=== PATIENT | female | born 1945 | race Caucasian/White ===

== ENCOUNTER 2018-03-31 15:53 | Emergency (ER) | payer MEDICARE, BC ==
[2018-03-31 16:00] VITALS: RESP 18
--- NOTE | 2018-03-31 16:03 | ED ---
General Adult HPI - General Chief complaint: Recheck/Abnormal Lab/Rx Stated complaint: med withdrawal Time Seen by Provider: 03/31/18 16:02 Source: patient, family Mode of arrival: ambulatory Limitations: no limitations - History of Present Illness Initial comments: Clarice Lieberman is a 72yo female who presents to the ED today for evaluation of concern for opiate withdraw and depression. Patient reports that she has been using oxycodone for 14 years, since she sustained an ankle injury. Patient reports that over the past couple of years she has been taking 2-4 Oxycodone daily. She states that at this point she believes that she has just been self medicating because she is depressed. Patient states [place] She states that the only things in the counter pharmacy in a bar. She states she has very limited social interaction that she has been isolated from her extended family including her daughters and her close female friends. She states that she has felt very socially isolated. She has been asking her to move to this area so that she could have more social interaction however he has refused. The patient states that last week she made a final decision to move in with her daughter so that she could be closer to more family. She states that since moving down here she has not had any oxycodone since Thursday and is concerned that she may have withdrawal. She came to the ER because she does not have any primary care and wants resources. Patient states that she does not believe she is experiencing any symptoms of withdrawal yet. She is not experiencing agitation, abdominal pain, nausea, vomiting, diarrhea. Patient denies any suicidal or homicidal thoughts, she has no delusions or hallucinations. SHe has been tending to her ADLs and making efforts to improve her life. The patient has her daughter and best friend at bedside. Her best friend states that she follows closely with a primary care physician here in town and is going to try to get the patient an appointment shortly. - Related Data Home Medications Medication Instructions Recorded Confirmed Aspirin EC [Ecotrin Low Dose] 81 mg PO DAILY 03/31/18 03/31/18 Atorvastatin [Lipitor] 10 mg PO DAILY 03/31/18 03/31/18 Carvedilol [Coreg] 12.5 mg PO BID 03/31/18 03/31/18 Cholecalciferol [Vitamin D3] 1,000 unit PO DAILY 03/31/18 03/31/18 Cyanocobalamin (Vitamin B-12) 3,000 mcg PO DAILY 03/31/18 03/31/18 [Vitamin B-12] Estrogen,Con/M-Progest Acet 1 tab PO DAILY 03/31/18 03/31/18 [Prempro 0.3 mg-1.5 mg Tablet] Ferrous Sulfate [Feosol] 325 mg PO DAILY 03/31/18 03/31/18 Furosemide [Lasix] 40 mg PO DAILY 03/31/18 03/31/18 Levothyroxine Sodium [Synthroid] 125 mcg PO DAILY 03/31/18 03/31/18 Omeprazole 40 mg PO DAILY 03/31/18 03/31/18 PARoxetine HCL [Paxil] 20 mg PO DAILY 03/31/18 03/31/18 Phenyleph/Acetaminophn/Doxylam 1 cap PO Q6HR PRN 03/31/18 03/31/18 [Vicks Dayquil-Nyquil Sinex Cap] Potassium Chloride ER [K-Dur 20] 20 meq PO DAILY 03/31/18 03/31/18 Valsartan 160 mg PO DAILY 03/31/18 03/31/18 amLODIPine BESYLATE [Norvasc] 10 mg PO HS 03/31/18 03/31/18 Previous Rx's Medication Instructions Recorded Baclofen 10 mg PO TID #15 tab 03/31/18 Dicyclomine [Bentyl] 10 mg PO TID #30 capsule 03/31/18 Allergies Allergy/AdvReac Type Severity Reaction Status Date / Time No Known Allergies Allergy Verified 03/31/18 16:20 Review of Systems ROS Statement: Those systems with pertinent positive or pertinent negative responses have been documented in the HPI. ROS Other: All systems not noted in ROS Statement are negative. Constitutional: Denies: fever, chills Respiratory: Denies: cough Cardiovascular: Denies: chest pain, palpitations Endocrine: Denies: fatigue Gastrointestinal: Denies: abdominal pain, nausea, vomiting Genitourinary: Denies: dysuria Musculoskeletal: Reports: arthralgia (chronic pain due to previous injuries of right ankle and left shoulder). Denies: back pain Skin: Denies: rash Neurological: Denies: headache Psychiatric: Reports: depression Hematological/Lymphatic: Denies: easy bleeding, easy bruising Past Medical History Past Medical History: CVA/TIA, Hypertension History of Any Multi-Drug Resistant Organisms: None Reported Past Surgical History: Joint Replacement Additional Past Surgical History / Comment(s): ankle Past Psychological History: Depression Smoking Status: Current every day smoker Past Alcohol Use History: None Reported Past Drug Use History: None Reported General Exam Limitations: no limitations General appearance: alert, in no apparent distress Head exam: Present: atraumatic, normocephalic Eye exam: Present: normal appearance ENT exam: Present: normal exam Neck exam: Present: normal inspection Respiratory exam: Present: normal lung sounds bilaterally. Absent: respiratory distress Cardiovascular Exam: Present: normal rhythm, tachycardia GI/Abdominal exam: Present: soft. Absent: distended Rectal exam: Present: deferred Extremities exam: Present: normal inspection Back exam: Present: normal inspection Neurological exam: Present: alert, oriented X3 Psychiatric exam: Present: depressed. Absent: anxious, flat affect, manic, homicidal ideation, suicidal ideation Skin exam: Present: warm, dry Course Vital Signs 03/31/18 03/31/18 15:56 17:08 Temperature 97.3 F L 98.4 F Pulse Rate 104 H 75 Respiratory 18 18 Rate Blood Pressure 195/91 153/73 O2 Sat by Pulse 100 100 Oximetry Medical Decision Making - Medical Decision Making Patient was seen and evaluated, the history is obtained from the patient as well as her daughter and friend at bedside Patient with 14 years of regular oxycodone use, denies any use of any other narcotics or pain medications. She does admit to obtaining oxycodone from friends and family members. She denies any other drug use. Patient expresses concerns that she is depressed, states that she has moved to this area to be with her family and friends and have stronger social support. Came to the ER concerned with impending opiate withdrawal. Time of arrival the patient was tachycardic and hypertensive but had no other acute complaints. Clonidine patch was ordered. I will discharge patient home with Bentyl and baclofen for symptomatic treatment of withdrawal. I offered to have the psychiatric nurse meet with the patient to establish an outpatient therapy and support system. At this time the patient feels confident that she will be able to establish a primary care physician all of the outpatient care that she needs. She does not want to wait to talk with the psychiatric nurse. I advised patient this time she does not appear to be having a symptomatic withdraw however there is possibility that she will develop symptoms. Advised if she develops any symptoms she should call 911 or return to the emergency department for reevaluation. I had a long conversation with the patient and her family member regarding depression as well as opiate withdrawal. Patient and family at bedside agreeable to plan for discharge home with symptomatic therapy of opiate withdrawal and plan to return to the ER for reevaluation if needed. Disposition Clinical Impression: Narcotic dependence Disposition: HOME SELF-CARE Condition: Good Instructions: Opioid Withdrawal (ED) Prescriptions: Baclofen 10 mg PO TID #15 tab Dicyclomine [Bentyl] 10 mg PO TID #30 capsule Is patient prescribed a controlled substance at d/c from ED?: No Referrals: None,Stated [Primary Care Provider] - 1-2 days
[2018-03-31] MEDS ORDERED: cloNIDine 0.1 MG/24HR PATCH 1 PATCH PATCH TRANSDERM SCH (17:00)
[2018-03-31 17:09] VITALS: BP 153/73; PULSE 75; TEMP 98.4
== END 2018-03-31 17:36 | disposition home or self-care (01) ==
LOC: EC 15:53
DX: F11.20 Opioid dependence, uncomplicated (principal); I10 Essential (primary) hypertension; F32.9 Major depressive disorder, single episode, unspecified; F17.200 Nicotine dependence, unspecified, uncomplicated; Z86.73 Personal history of transient ischemic attack (TIA), and cerebral infarction without residual deficits; Z79.82 Long term (current) use of aspirin; Z79.02 Long term (current) use of antithrombotics/antiplatelets; Z79.899 Other long term (current) drug therapy
CPT/HCPCS: 99283

== ENCOUNTER 2022-08-09 07:57 | Emergency (ER) | payer MEDICARE, BC ==
[2022-08-09 08:02] VITALS: TEMP 97.9
[2022-08-09] MEDS ORDERED: ACET/COD 300 MG/30 MG STARTER PACK 6 TAB BTL PO STA (08:19)
--- NOTE | 2022-08-09 08:23 | ED ---
Fall HPI - General Chief Complaint: Fall Stated Complaint: fall Time Seen by Provider: 08/09/22 08:06 Source: patient Mode of arrival: wheelchair - History of Present Illness Initial Comments: 77 year-old female patient presents for evaluation of left knee pain and back pain after a fall this morning and a fall yesterday. Patient states that she slipped on the deck outside and slipped on her camper stairs in the rain. Yesterday she landed on her buttocks with the fall and has had lower back pain since the incident. Today she slipped and fell right onto her left knee. States she is unable to bear weight on the leg, has a difficult time bending and straightening, and there is some bruising. She denies hitting her head or losing consciousness with either fall. Denies any neck pain. Denies numbness or tingling to the extremities. Patient denies any headache, chest pain, shortness of breath, dizziness, weakness, abdominal pain, nausea, vomiting, or difficulties with bowel movements or urination. - Related Data Home Medications Medication Instructions Recorded Confirmed Aspirin EC [Ecotrin Low Dose] 81 mg PO DAILY 03/31/18 03/31/18 Atorvastatin [Lipitor] 10 mg PO DAILY 03/31/18 03/31/18 Cholecalciferol [Vitamin D3] 1,000 unit PO DAILY 03/31/18 03/31/18 Cyanocobalamin (Vitamin B-12) 3,000 mcg PO DAILY 03/31/18 03/31/18 [Vitamin B-12] Estrogen,Con/M-Progest Acet 1 tab PO DAILY 03/31/18 03/31/18 [Prempro 0.3 mg-1.5 mg Tablet] Ferrous Sulfate [Feosol] 325 mg PO DAILY 03/31/18 03/31/18 Furosemide [Lasix] 40 mg PO DAILY 03/31/18 03/31/18 Levothyroxine Sodium [Synthroid] 125 mcg PO DAILY 03/31/18 03/31/18 Omeprazole 40 mg PO DAILY 03/31/18 03/31/18 PARoxetine HCL [Paxil] 20 mg PO DAILY 03/31/18 03/31/18 Phenyleph/Acetaminophn/Doxylam 1 cap PO Q6HR PRN 03/31/18 03/31/18 [Vicks Dayquil-Nyquil Sinex Cap] Potassium Chloride ER [K-Dur 20] 20 meq PO DAILY 03/31/18 03/31/18 Valsartan 160 mg PO DAILY 03/31/18 03/31/18 amLODIPine BESYLATE [Norvasc] 10 mg PO HS 03/31/18 03/31/18 carvediloL [Coreg] 12.5 mg PO BID 03/31/18 03/31/18 Previous Rx's Medication Instructions Recorded Baclofen 10 mg PO TID #15 tab 03/31/18 Dicyclomine [Bentyl] 10 mg PO TID #30 capsule 03/31/18 Allergies Allergy/AdvReac Type Severity Reaction Status Date / Time No Known Allergies Allergy Verified 08/09/22 07:58 Review of Systems ROS Statement: Those systems with pertinent positive or pertinent negative responses have been documented in the HPI. ROS Other: All systems not noted in ROS Statement are negative. Past Medical History Past Medical History: CVA/TIA, Hypertension History of Any Multi-Drug Resistant Organisms: None Reported Past Surgical History: Joint Replacement Additional Past Surgical History / Comment(s): ankle, left knee replacement Past Psychological History: Depression Smoking Status: Current every day smoker Past Alcohol Use History: None Reported Past Drug Use History: None Reported General Exam Limitations: no limitations General appearance: alert, in no apparent distress, other (This is a well- developed, well-nourished adult female in no acute distress.) Head exam: Present: atraumatic, normocephalic, normal inspection Eye exam: Present: normal appearance, PERRL, EOMI. Absent: scleral icterus, conjunctival injection, nystagmus, periorbital swelling ENT exam: Present: normal exam, normal oropharynx, mucous membranes moist Neck exam: Present: normal inspection, full ROM, other (Nontender, no step-off, no deformity to firm midline palpation of the posterior cervical spine. Full range of motion without pain or limitation.). Absent: tenderness, meningismus, lymphadenopathy Respiratory exam: Present: normal lung sounds bilaterally. Absent: respiratory distress, wheezes, rales, rhonchi, stridor Cardiovascular Exam: Present: regular rate, normal rhythm, normal heart sounds. Absent: systolic murmur, diastolic murmur, rubs, gallop, clicks GI/Abdominal exam: Present: soft, normal bowel sounds. Absent: distended, tenderness, guarding, rebound, rigid Extremities exam: Present: full ROM, tenderness (Left anterior knee), normal capillary refill, other (Soft tissue swelling, small area of ecchymosis and superficial abrasion to the left anterior knee. Full flexion and extension are present. Skin the leg is pink, warm, dry. Cap refill less than 3 seconds. Pedal pulse 2+.). Absent: normal inspection, pedal edema, joint swelling, calf tenderness Back exam: Present: normal inspection, vertebral tenderness (Lower thoracic vertebral tenderness.), other (No bony step-off or deformity noted to firm midline palpation of the posterior spine.) Neurological exam: Present: alert, oriented X3, CN II-XII intact Psychiatric exam: Present: normal affect, normal mood Skin exam: Present: warm, dry, intact, normal color. Absent: rash Course Vital Signs 08/09/22 07:58 Temperature 97.9 F Pulse Rate 72 Respiratory 16 Rate Blood Pressure 133/70 O2 Sat by Pulse 99 Oximetry Medical Decision Making - Medical Decision Making 77-year-old female patient presents to the emergency for evaluation of left knee pain and back pain after to slip and fall accident's. Physical examination did reveal soft tissue swelling and a small area of ecchymosis over the left anterior knee. Full extension and flexion is present. Neurovascular status intact. Did have some mild tenderness over the lower thoracic spine. X-rays of left knee obtained and showed joint effusion and soft tissue swelling no other abnormalities. Thoracic spine x-ray was negative for any acute abnormalities as well. I did discuss findings and results with her. She is instructed take Tylenol Motrin for pain control. Instructed to rest, ice, elevate the left kne e. Return parameters were discussed in detail. She is instructed to contact her computer network specialist on Thursday she still having pain to the knee. Verbalizes understanding and agrees with this plan. My attending is Dr. Sood. - Radiology Data Radiology results: report reviewed, image reviewed 3 views of left knee are obtained. Report was reviewed in its entirety. Impression by Dr. Trejo shows no acute fracture dislocation. Osteopenia. Postop changes. Joint effusion and soft tissue swelling. 3 views of the thoracic spine are obtained. Report was reviewed in its entirety. Impression by Dr. Trejo shows no acute fracture or subluxation. Degenerative disc disease and osteopenia. Disposition Clinical Impression: Effusion of left knee joint, Contusion of left knee, Low back pain Disposition: HOME SELF-CARE Condition: Good Instructions (If sedation given, give patient instructions): Acute Low Back Pain (ED), Swollen Knee Joint (ED) Additional Instructions: Rest, ice, elevate the left knee. Apply ice to the low back. Gentle range of motion. Follow-up with computer network specialist for further evaluation of your knee as soon as possible. Follow-up with primary care physician for recheck in 1-2 days. Return for any new, worsening, or concerning symptoms. Is patient prescribed a controlled substance at d/c from ED?: No Referrals: Nonstaff,Physician [Primary Care Provider] - 1-2 days Time of Disposition: 09:10
--- NOTE | 2022-08-09 09:07 | XR ---
Thoracic spine HISTORY: Pain, trauma 3 views of the thoracic spine Thoracic vertebral bodies show preserved height and alignment. Bone mineralization is reduced which c ould limit evaluation. Surgical clips are present right upper quadrant. The aorta is dense. There is multilevel spondylosis. Loss of disc height is present at intervertebral levels consistent with degen erative disc disease. Some multilevel endplate sclerosis is present. IMPRESSION: No acute fracture or subluxation. Degenerative disc disease and osteopenia.
--- NOTE | 2022-08-09 09:08 | XR ---
Left knee HISTORY: Trauma and pain 3 views the left knee Bone mineralization is reduced. Patient is status post left knee arthroplasty. There is anatomic alig nment. Soft tissue swelling is present, suprapatellar increased density suggests joint effusion. Athe rosclerotic vascular calcifications are noted. IMPRESSION: No acute fracture or dislocation. Osteopenia. Postop changes. Joint effusion and soft tis kia swelling.
[2022-08-09 09:30] VITALS: BP 167/63; PULSE 75; RESP 19
== END 2022-08-09 09:30 | disposition home or self-care (01) ==
LOC: EC 07:57
DX: S80.02XA Contusion of left knee, initial encounter (principal); M54.50 Low back pain, unspecified; I10 Essential (primary) hypertension; Z86.73 Personal history of transient ischemic attack (TIA), and cerebral infarction without residual deficits; F17.200 Nicotine dependence, unspecified, uncomplicated; W19.XXXA Unspecified fall, initial encounter
CPT/HCPCS: 72072; 99284